=== PATIENT | female | born 1995 | race Caucasian/White ===

== ENCOUNTER 2019-05-23 00:26 | Outpatient (CLI) | payer BC ==
[~2019-05-23] VITALS: Ht 154.9 cm; Wt 93.2 kg
[2019-05-23 00:55] VITALS: BP 114/64
[2019-05-23 01:00] LABS: MICROSCOPIC INDICATED
== END 2019-05-23 02:40 | disposition home or self-care (01) ==
LOC: LDOP 00:26
PROVIDERS: ATTEND Obstetrics & Gynecology
DX: O26.893 Other specified pregnancy related conditions, third trimester (principal); R10.9 Unspecified abdominal pain; Z3A.34 34 weeks gestation of pregnancy
CPT/HCPCS: 59025; 81001; 84112; 87086; 99201; G0463

== ENCOUNTER 2019-06-08 22:03 | Outpatient (CLI) | payer BC ==
[~2019-06-08] VITALS: Ht 154.9 cm; Wt 94.5 kg
[2019-06-08 22:38] VITALS: BP 121/66
== END 2019-06-08 23:24 | disposition home or self-care (01) ==
LOC: LDOP 22:03
PROVIDERS: ATTEND Obstetrics & Gynecology
DX: O99.89 Other specified diseases and conditions complicating pregnancy, childbirth and the puerperium (principal); M54.9 Dorsalgia, unspecified; O26.893 Other specified pregnancy related conditions, third trimester; R51 Headache; H53.8 Other visual disturbances; Z3A.36 36 weeks gestation of pregnancy
CPT/HCPCS: 36415; 59025; 80053; 81003; 82248; 82570; 84156; 84550; 85025; 99211; G0463

== ENCOUNTER 2021-06-23 11:22 | Outpatient (CLI) | payer BC ==
[~2021-06-23] VITALS: Ht 154.9 cm; Wt 99.5 kg
[~2021-06-23 11:22] MED LIST: HYDR-2214 PO; IBUP200T49 PO; PREN1TAB60 PO; SERT50TA PO
[2021-06-23 11:54] VITALS: BP 109/69
[2021-06-23 13:15] LABS: MICROSCOPIC INDICATED
== END 2021-06-23 13:50 | disposition home or self-care (01) ==
LOC: LDOP 11:22
PROVIDERS: ATTEND Obstetrics & Gynecology
DX: O26.893 Other specified pregnancy related conditions, third trimester (principal); R10.9 Unspecified abdominal pain; Z3A.39 39 weeks gestation of pregnancy
CPT/HCPCS: 59025; 81001; 87086

== ENCOUNTER 2021-06-29 03:11 | Inpatient (IN) | payer BC ==
[~2021-06-29] VITALS: Ht 154.9 cm; Wt 101.0 kg
[2021-06-29] MEDS ORDERED: SODIUM CITRATE/CITRIC ACID 30 ML UDC PO ONE (06:00)
[2021-06-29] MEDS ORDERED: LACTATED RINGERS 1,000 ML IVBOLUS ONE (06:00)
[2021-06-29] MEDS ORDERED: METOCLOPRAMIDE 5 MG/ML, 2ML IV ONE (06:00)
[2021-06-29 06:14] VITALS: BP 119/73
[2021-06-29 06:49] LABS: BASOPHILS % (AUTO) 0 % (0-1); EOSINOPHILS % (AUTO) 0 % (1-7); LYMPHOCYTES % (AUTO) 23 % (22-44); MEAN CORPUSCULAR HEMOGLOBIN 30.3 pg (27.0-34.8); MEAN CORPUSCULAR HGB CONC 33.6 g/dL (32.4-35.8); MEAN PLATELET VOLUME 8.9 fL (7.4-10.4); MONOCYTES % (AUTO) 7 % (2-9); NEUTROPHILS % (AUTO) 70 % (42-75); PLATELET COUNT 238 x10^3/uL (130-400); RED BLOOD COUNT 3.99 x10^6/uL (3.82-5.3); RED CELL DISTRIBUTION WIDTH 14.6 % (9.6-15.2)
[2021-06-29] MEDS ORDERED: FENTANYL PF 100 MCG/2ML IV PRN (07:30)
[2021-06-29] MEDS ORDERED: OXYTOCIN 30U/ 0.9% NaCL 500ML 500 ML IV ONE (07:30)
[2021-06-29] MEDS ORDERED: LACTATED RINGERS 1,000 ML IV SCH ×2 (07:30→15:00)
[2021-06-29] MEDS ORDERED: TERBUTALINE 1 MG/ML, 1ML IVPush PRN (07:30)
[2021-06-29] MEDS ORDERED: FENTANYL PF 100 MCG/2ML IVPush PRN (07:30)
[2021-06-29] MEDS ORDERED: TERBUTALINE 1 MG/ML, 1ML SQ PRN (07:30)
[2021-06-29] MEDS ORDERED: NEWBORN KIT ONE (07:38)
[2021-06-29] MEDS ORDERED: MISOPROSTOL 200 MCG TABLET ONE (07:38)
[2021-06-29] MEDS ORDERED: LIDOCAINE 1%, 20ML ONE (07:38)
[2021-06-29] MEDS ORDERED: LACTATED RINGERS 1,000 ML IVBOLUS PRN ×2 (08:30→15:00)
[2021-06-29] MEDS ORDERED: FENTANYL/BUPIV./NS/PF 250 ML EPIDCONT SCH ×2 (08:30→15:00)
[2021-06-29] MEDS ORDERED: EPHEDRINE 50 MG/ML, 1ML IVPush PRN ×2 (08:30→15:00)
[2021-06-29] MEDS: OXYTOCIN 30U/ 0.9% NaCL 500ML 500 ML IV PRN (10:52)
[2021-06-29] MEDS ORDERED: BUPIVACAINE 0.25% ONE (13:56)
[2021-06-29] MEDS: AMPICILLIN 2 GM in SODIUM CHLORIDE 0.9% 100 ML IV SCH ×2 (17:26→23:13)
[2021-06-29] MEDS ORDERED: METOCLOPRAMIDE 5 MG/ML, 2ML ONE (20:13)
[2021-06-29] MEDS ORDERED: SODIUM CITRATE/CITRIC ACID 15 ML UDC ONE (20:13)
[2021-06-30] MEDS ORDERED: LIDOCAINE/MPF 2%-EPI 1:200K, 20 ML ONE (01:22)
[2021-06-30] MEDS ORDERED: MEASLES,MUMPS&RUBELLA VACC/PF 0.5 ML SQ-VACC PRN (01:30)
[2021-06-30] MEDS ORDERED: ONDANSETRON 2MG/ML, 2ML IV PRN (01:30)
[2021-06-30] MEDS ORDERED: MISOPROSTOL 200 MCG TABLET PR PRN (01:30)
[2021-06-30] MEDS ORDERED: CARBOPROST TROMETHAMINE 250 MCG/ML, 1ML IM PRN (01:30)
[2021-06-30] MEDS ORDERED: AZITHROMYCIN 500 MG in SODIUM CHLORIDE 0.9% 250 ML IV ONE (01:30)
[2021-06-30] MEDS ORDERED: ACETAMINOPHEN 325 MG TABLET PO PRN ×2 (01:30)
[2021-06-30] MEDS: LACTATED RINGERS 1,000 ML IV SCH ×6 (01:30→21:30)
[2021-06-30] MEDS ORDERED: METOCLOPRAMIDE 5 MG/ML, 2ML IVPush ONE (01:30)
[2021-06-30] MEDS ORDERED: GLYCERIN ADULT SUPP PR PRN (01:30)
[2021-06-30] MEDS ORDERED: CALCIUM CARBONATE 500 MG TAB.CHEW PO PRN (01:30)
[2021-06-30] MEDS ORDERED: BISACODYL 10 MG SUPP PR PRN (01:30)
[2021-06-30] MEDS ORDERED: METOCLOPRAMIDE 5 MG/ML, 2ML IV PRN (01:30)
[2021-06-30] MEDS ORDERED: METHYLERGONOVINE 0.2 MG/ML IM PRN (01:30)
[2021-06-30] MEDS ORDERED: LACTATED RINGERS 1,000 ML IVBOLUS ONE (01:30)
[2021-06-30] MEDS ORDERED: SODIUM CITRATE/CITRIC ACID 30 ML UDC PO ONE (01:30)
[2021-06-30] MEDS ORDERED: LACTATED RINGERS 1,000 ML IV SCH (01:30)
[2021-06-30] MEDS ORDERED: OXYcodone/APAP 5/325MG TABLET PO PRN (01:30)
[2021-06-30] MEDS ORDERED: DIPH,PERTUSS(ACELL),TET VAC/PF NC IM-VACC PRN (01:30)
[2021-06-30] MEDS ORDERED: KETOROLAC 30 MG/1 ML IV SCH (01:30)
[2021-06-30] MEDS ORDERED: ONDANSETRON 2MG/ML, 2ML IVPush ONE (01:30)
[2021-06-30] MEDS: OXYTOCIN 30U/ 0.9% NaCL 500ML 500 ML IV SCH ×3 (02:50→21:30)
[2021-06-30] MEDS ORDERED: OXYcodone 5 MG/5 ML ORAL.SOL UDC PO PRN (04:30)
[2021-06-30 05:30] VITALS: BP 118/80
[2021-06-30] MEDS: OXYcodone/APAP 5/325MG TABLET PO PRN ×3 (05:35→19:22)
[2021-06-30 07:30] VITALS: BP 112/76
[2021-06-30] MEDS: MEPERIDINE/PF 50 MG/ML IVPush PRN ×3 (07:54→21:08)
[2021-06-30] MEDS: DOCUSATE 100 MG CAPSULE PO PRN ×2 (07:54→19:22)
[2021-06-30] MEDS: IBUPROFEN 600 MG TABLET PO PRN ×3 (07:54→21:08)
[2021-06-30] MEDS: PRENATAL VIT/IRON/FA 1 EACH TABLET PO SCH (07:54)
[2021-06-30 10:27] LABS: BASOPHILS % (AUTO) 0 % (0-1); EOSINOPHILS % (AUTO) 0 % (1-7); LYMPHOCYTES % (AUTO) 15 % (22-44); MEAN CORPUSCULAR HEMOGLOBIN 30.4 pg (27.0-34.8); MEAN CORPUSCULAR HGB CONC 33.4 g/dL (32.4-35.8); MEAN PLATELET VOLUME 9.1 fL (7.4-10.4); MONOCYTES % (AUTO) 5 % (2-9); NEUTROPHILS % (AUTO) 80 % (42-75); PLATELET COUNT 194 x10^3/uL (130-400); RED BLOOD COUNT 3.48 x10^6/uL (3.82-5.3); RED CELL DISTRIBUTION WIDTH 14.6 % (9.6-15.2)
[2021-06-30 12:10] VITALS: BP 108/71
[2021-06-30] MEDS: SIMETHICONE 80 MG CHEW TAB PO PRN (13:36)
[2021-06-30 16:00] VITALS: BP 101/70
[2021-06-30 20:00] VITALS: BP 113/76
[2021-07-01 00:12] VITALS: BP 105/70
[2021-07-01] MEDS: LACTATED RINGERS 1,000 ML IV SCH ×5 (01:30→17:30)
[2021-07-01] MEDS: OXYcodone/APAP 5/325MG TABLET PO PRN ×4 (02:24→19:19)
[2021-07-01 07:20] VITALS: BP 114/78
[2021-07-01] MEDS: OXYTOCIN 30U/ 0.9% NaCL 500ML 500 ML IV SCH ×2 (07:30→17:30)
[2021-07-01] MEDS: PRENATAL VIT/IRON/FA 1 EACH TABLET PO SCH (07:54)
[2021-07-01] MEDS: DOCUSATE 100 MG CAPSULE PO PRN ×2 (07:54→19:20)
[2021-07-01] MEDS: IBUPROFEN 600 MG TABLET PO PRN ×3 (07:54→20:51)
[2021-07-01] MEDS: SIMETHICONE 80 MG CHEW TAB PO PRN (07:54)
[2021-07-01 20:30] VITALS: BP 120/82
[2021-07-02] MEDS: OXYcodone/APAP 5/325MG TABLET PO PRN ×4 (00:15→13:52)
[2021-07-02] MEDS: LACTATED RINGERS 1,000 ML IV SCH ×3 (01:30→07:09)
[2021-07-02] MEDS: IBUPROFEN 600 MG TABLET PO PRN ×2 (03:06→09:11)
[2021-07-02] MEDS: OXYTOCIN 30U/ 0.9% NaCL 500ML 500 ML IV SCH ×2 (03:30→07:09)
[2021-07-02] MEDS: OXYTOCIN 30U/ 0.9% NaCL 500ML 500 ML IV PRN (07:09)
[2021-07-02] MEDS ORDERED: OXYC1TAB14 PO (07:23)
[2021-07-02] MEDS ORDERED: DOCU-131 PO (07:23)
[2021-07-02] MEDS ORDERED: IBUP-1222 PO (07:23)
[2021-07-02 07:25] VITALS: BP 121/82
[2021-07-02] MEDS: PRENATAL VIT/IRON/FA 1 EACH TABLET PO SCH (09:11)
[2021-07-02] MEDS: DOCUSATE 100 MG CAPSULE PO PRN (09:11)
== END 2021-07-02 14:12 | disposition home or self-care (01) | DRG 788 ==
LOC: LDOP 03:11 → LDIP 04:59 → 2NW 06-30 04:57
PROVIDERS: ADMIT Obstetrics & Gynecology; ATTEND Obstetrics & Gynecology
PROC: 10D00Z1 Extraction of Products of Conception, Low, Open Approach (ICD-10-PCS; principal; 2021-06-30)
PROC: 3E0234Z Introduction of Serum, Toxoid and Vaccine into Muscle, Percutaneous Approach (ICD-10-PCS; 2021-06-30)
PROC: 3E0234Z Introduction of Serum, Toxoid and Vaccine into Muscle, Percutaneous Approach (ICD-10-PCS; 2021-06-30)
DX: O42.92 Full-term premature rupture of membranes, unspecified as to length of time between rupture and onset of labor (principal); O34.211 Maternal care for low transverse scar from previous cesarean delivery; O66.41 Failed attempted vaginal birth after previous cesarean delivery; Z20.822 Contact with and (suspected) exposure to COVID-19; O69.81X0 Labor and delivery complicated by cord around neck, without compression, not applicable or unspecified; Z37.0 Single live birth; Z3A.40 40 weeks gestation of pregnancy; Z23 Encounter for immunization
CPT/HCPCS: 36415; 85025; 85461; 86592; 86850; 86900; 87635; 89060; G0378; J0290; J2175; J2790; J2590; J2765; J7120; Q0114